=== PATIENT | male | born 1960 | race Caucasian/White ===

== ENCOUNTER 2017-03-20 10:53 | Emergency (ER) | payer MEDICAID ==
[2017-03-20] MEDS ORDERED: Aspirin 325 mg EC Tablets PO STA (11:29)
[2017-03-20] MEDS ORDERED: Sodium Chloride 0.9% 1,000 ML IV ONE (11:29)
[2017-03-20] MEDS ORDERED: Sodium Chloride 0.9% 1,000 ML ONE (11:38)
[2017-03-20] MEDS ORDERED: Aspirin 325 mg EC Tablets PO ONE (11:38)
--- NOTE | 2017-03-20 11:44 | RAD ---
HISTORY: chest pain COMPARISON: None available. TECHNIQUE: Chest PA and lateral FINDINGS: LUNGS: No focal consolidation. Please note that chest x-ray has limited sensitivity for the detection of pulmonary masses. PLEURA: No significant pleural effusion identified. No definite pneumothorax . CARDIOVASCULAR: The cardiomediastinal silhouette appears within normal limits of size. OSSEOUS STRUCTURES: No acute osseous abnormality identified. VISUALIZED UPPER ABDOMEN: Unremarkable. OTHER FINDINGS: None. IMPRESSION: No focal consolidation, significant pleural effusion, or definite pneumothorax identified.
[2017-03-20 11:47] LABS: RBC URINE < 1 /hpf (0-3); URINE BILIRUBIN NEGATIVE (NEGATIVE); URINE BLOOD NEGATIVE (NEGATIVE); URINE COLOR Yellow (YELLOW); URINE GLUCOSE (UA) NORMAL (Normal); URINE KETONE NEGATIVE (NEGATIVE); URINE LEUKOCYTE ESTERASE NEG Leu/uL (Negative); URINE PROTEIN NEGATIVE (NEGATIVE); URINE UROBILINOGEN NORMAL mg/dL (0.2-1.0); WBC URINE < 1 /hpf (0-5)
[2017-03-20 11:56] LABS: BASO % 0.5 % (0.0-2.0); EOS # 0.1 K/uL (0.0-0.7); EOS % 1.8 % (0.0-4.0); HEMATOCRIT 40.1 % (35.0-51.0); LYMPH # 2.3 K/uL (1.0-4.3); LYMPH % 36.6 % (20.0-40.0); MEAN CORPUSCULAR HEMOGLOBIN 30.2 pg (27.0-31.0); MEAN CORPUSCULAR HGB CONC 33.6 g/dL (33.0-37.0); MEAN PLATELET VOLUME 8.6 fL (7.2-11.7); MONO # 0.6 K/uL (0.0-0.8); MONO % 9.8 % (0.0-10.0); RED CELL DISTRIBUTION WIDTH 13.4 % (11.5-14.5); WHITE BLOOD COUNT 6.3 K/uL (4.8-10.8)
[2017-03-20 12:05] LABS: CHLORIDE 101 mmol/L (98-107); SODIUM 140 mmol/L (132-148)
[2017-03-20 12:07] LABS: CHOLESTEROL 216 mg/dL (0-199)
[2017-03-20 12:08] LABS: ALB/GLOB RATIO 1.5 (1.0-2.1); ALKALINE PHOSPHATASE 51 U/L (38-126); ALT/SGPT 24 U/L (21-72); AST/SGOT 28 U/L (17-59); BILIRUBIN,TOTAL 1.3 mg/dL (0.2-1.3); BLOOD UREA NITROGEN 14 mg/dL (9-20); CALCIUM 8.7 mg/dl (8.6-10.4); CARBON DIOXIDE 28 mmol/L (22-30); GFR AFRICAN-AMERICAN > 60; GLUCOSE,RANDOM 92 mg/dL (75-110); TOTAL PROTEIN 7.5 g/dL (6.3-8.3)
--- NOTE | 2017-03-20 12:27 | C.PDOC ---
History Of Present Illness 56 y/o male presents to the ED with complains of left sided chest pain since yesterday. Patient states last night he felt like he had palpitations with chest heaviness. Today has intermittent episodes of chest heaviness but denies palpitations and reports SOB on exertion. Denies back pain, extremity weakness or numbness, fever or any other complaints. PMHx high cholesterol; denies hx heart disease. Time Seen by Provider: 03/20/17 11:24 Chief Complaint (Nursing): Chest Pain History Per: Patient History/Exam Limitations: no limitations Onset/Duration Of Symptoms: Hrs Current Symptoms Are (Timing): Still Present Severity: Moderate Quality: Other (heaviness) Associated Symptoms: denies: Dyspnea, Diaphoresis, Syncope Exacerbating Factors: Exertion Alleviating Factors: None Recent travel outside of the [place]: No Past Medical History Reviewed: Historical Data, Nursing Documentation, Vital Signs Vital Signs: Last Vital Signs Temp 97.9 F 03/20/17 13:05 Pulse 55 L 03/20/17 13:05 Resp 12 03/20/17 13:05 BP 117/68 03/20/17 13:05 Pulse Ox 100 03/20/17 13:05 - Medical History PMH: Hypercholesterolemia Surgical History: Appendectomy Family History: States: Unknown Family Hx - Social History Hx Alcohol Use: Yes Hx Substance Use: No - Immunization History Hx Tetanus Toxoid Vaccination: No Hx Influenza Vaccination: Yes Hx Pneumococcal Vaccination: No Review Of Systems Constitutional: Negative for: Fever, Weakness, Malaise Cardiovascular: Positive for: Chest Pain (heaviness), Palpitations (resolved) Respiratory: Positive for: SOB with Excertion. Negative for: Pleuritic Pain Gastrointestinal: Negative for: Nausea, Vomiting, Abdominal Pain, Diarrhea Genitourinary: Negative for: Dysuria Musculoskeletal: Negative for: Neck Pain, Shoulder Pain, Arm Pain, Back Pain Neurological: Negative for: Weakness, Numbness, Headache, Dizziness Physical Exam - Physical Exam Appears: Non-toxic, No Acute Distress Skin: Warm, Dry, No Diaphoretic, No Pale, No Rash Head: Atraumatic, Normacephalic Eye(s): bilateral: Normal Inspection, EOMI Nose: Normal, No Flaring Oral Mucosa: Moist Neck: Normal, Normal ROM, Supple Chest: Symmetrical, No Tenderness Cardiovascular: Rhythm Regular, No Murmur Respiratory: Normal Breath Sounds, No Rales, No Rhonchi, No Wheezing Gastrointestinal/Abdominal: Normal Exam, Soft, No Tenderness, No Distention, No Guarding Back: Normal Inspection, No Vertebral Tenderness, No Paraspinal Tenderness Extremity: Normal ROM Extremity: Bilateral: Atraumatic, Normal Color And Temperature, Normal ROM Neurological/Psych: Oriented x3, Normal Speech, Normal Motor, Normal Sensation Gait: Steady ED Course And Treatment - Laboratory Results Result Diagrams: 03/20/17 11:45 03/20/17 11:45 Lab Interpretation: No Acute Changes ECG: Interpreted By Me, Viewed By Me ECG Rhythm: Sinus Rhythm ECG Interpretation: No Acute Changes Rate From EC (BPM) O2 Sat by Pulse Oximetry: 98 (room air) Pulse Ox Interpretation: Normal - Radiology CXR: Interpreted by Me, Viewed By Me CXR Interpretation: Yes: No Acute Disease Medical Decision Making Medical Decision Making: Plan: * EKG * CXR * labs * UA * IV fluids * Aspirin Progress: Patient assessed and examined. EKG obtained and reviewed was normal sinus no ischemic changes. 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 Orders placed for labs including CE and CXR. ASA given. Labs reviewed showing borderline elevated cholesterol otherwise unremarkable and negative troponin. Based on negative cardiac enzymes after 2 days chest pain, no acute changes on EKG or cardiac monitoring have low clinical suspicion for ACS. Patient remained well and in no acute distress, chest pain resolved during ED evaluation. 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 Disposition Counseled Patient/Family Regarding: Studies Performed, Diagnosis, Need For Followup - Disposition Referrals: [facility] [Outside] [facility] [Outside] [facility] [Outside] Disposition: HOME/ ROUTINE Disposition Time: 12:50 Condition: IMPROVED Additional Instructions: Your EKG, Labs and chest xray were normal. Please follow up in the clinic or primary doctor in few days for further evaluation You may take Aspirin for any pain you have Return to the emergency department at any time if symptoms persist or worsen. [place] EKG, Labs y la radiografa de trax fueron normales. Por favor, siga en la clnica o mdico de cabecera en pocos owen para roya evaluacin posterior Usted puede doyle aspirina por cualquier dolor que tenga Regrese al servicio de urgencias en cualquier momento si los sntomas persisten o empeoran. 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 - Scribe Statement The provider has reviewed the documentation as recorded by the Scribe Dinesh Josue All medical record entries made by the Scribe were at my direction and personally dictated by me. I have reviewed the chart and agree that the record accurately reflects my personal performance of the history, physical exam, medical decision making, and the department course for this patient. I have also personally directed, reviewed, and agree with the discharge instructions and disposition.
[2017-03-20 13:05] VITALS: BP 117/68; PULSE 55; RESP 12; TEMP 97.9
[2017-03-21 07:41] VITALS: O2SAT 98
--- NOTE | 2017-03-26 07:47 | CARD ---
APPROVED REPORT EKG Measurement Heart [id number] <Conclusion> Normal sinus rhythm Nonspecific T wave abnormality Abnormal ECG
== END 2017-03-20 13:12 | disposition home or self-care (01) ==
LOC: C.ER 10:53
DX: R07.89 Other chest pain (principal)
CPT/HCPCS: 71020; 80053; 80061; 81001; 83880; 84484; 85025; 85610; 85730; 93005; 94770; 96360; 99285; J7040